=== PATIENT | female | born 1990 | race Caucasian/White ===

== ENCOUNTER 2020-06-24 12:20 | Outpatient (REF) | payer OTHER, SELFPAY | END 2020-06-24 12:21 | disposition home or self-care (01) | LOC: HO.LAB 12:20 | PROVIDERS: Visit Provider Internal Medicine | DX: Z20.828 Contact with and (suspected) exposure to other viral communicable diseases (principal) | CPT/HCPCS: U0003 ==

== ENCOUNTER 2021-04-13 09:00 | Outpatient (RCR) | payer OTHER, SELFPAY | END 2021-04-13 11:19 | disposition home or self-care (01) | LOC: HO.PT 09:00 | PROVIDERS: Visit Provider Orthopaedic Surgery | DX: M25.311 Other instability, right shoulder (principal); M25.312 Other instability, left shoulder | CPT/HCPCS: 97014; 97110; 97112; 97140; 97161 ==

== ENCOUNTER 2021-05-29 08:20 | Emergency (ER) | payer OTHER, SELFPAY ==
--- NOTE | 2021-05-29 | ECG_ITS ---
Test Reason : CHEST PAIN Blood Pressure : / mmHG Vent. Rate : 081 BPM Atrial Rate : 081 BPM P-R Int : 114 ms QRS Dur : 088 ms QT Int : 360 ms P-R-T Axes : 070 059 049 degrees QTc Int : 418 ms Normal sinus rhythm Normal ECG No previous ECGs available Referred By: Generic ED Physician Electronically Signed By:GRAEME MCCAULEY
--- NOTE | ~2021-05-29 | XR_ITS ---
EXAMINATION: XR CHEST CLINICAL INFORMATION: Chest pain COMPARISON: None TECHNIQUE: 2 views of the chest were obtained. FINDINGS: The lungs are clear. There is no pneumothorax, pleural reaction, airspace consolidation, groundglass opacity. The costophrenic sulci are well-defined there is size. The vascularity is normal. No acute bony abnormality. There are orthopedic screws overlying right shoulder. XR/XR chest 2V IMPRESSION: Lungs clear.
[2021-05-29 08:43] VITALS: BP 95/63; PULSE 86; RESP 19; TEMP 36.7; O2SAT 98; BMI 20.7
--- NOTE | 2021-05-29 09:08 | ED.CHESTPAIN ---
HPI - Chest Pain General Chief Complaint: Chest Pain Stated Complaint: chest pain, dizziness Time Seen by Provider: 05/29/21 09:01 Source: patient Mode of arrival: ambulatory Limitations: no limitations History of Present Illness MD complaint: chest pain Onset (ago): hour(s) (2) Timing of current episode: constant Prior episodes: No Onset: during rest Pain location: substernal Pain radiation: none Severity: mild Quality: sharp Relieving factors: nothing Exacerbating factors: palpation Context: other (first Pfizer shot on Saturday) Associated symptoms: dyspnea Treatment prior to arrival: none Related Data Previous Rx's Medication Instructions Recorded cyclobenzaprine 10 mg tablet 10 mg PO TID PRN #14 tab 05/29/21 ibuprofen 600 mg tablet 600 mg PO Q6H PRN #30 tab 05/29/21 Allergies Allergy/AdvReac Type Severity Reaction Status Date / Time Unable to Assess Allergy Verified 05/29/21 09:04 Review of Systems Review of Systems: Constitutional : No Fever, No Chills ENT/Mouth : No sore throat, No Rhinorrhea, No Swallowing Difficulty Eyes: No Eye Pain, No Swelling, No Redness Cardiovascular : pos Chest Pain, positive SOB, No Orthopnea, no Edema Respiratory : No Cough, No Sputum, No Wheezing, positive dyspnea Gastrointestinal : No Nausea, No Vomiting, No Diarrhea, No abdominal Pain, No Hematochezia, No Melena Genitourinary : No Dysuria, No Urinary Frequency, No Hematuria Musculoskeletal : No joint pain, No Myalgias Skin : No Skin Lesions, No rash Neuro : No Weakness, No Numbness, No Dizziness, No Headache Psych : No Anxiety/Panic, No Depression Heme/Lymph: No Bruising, No Lymphadenopathy Endocrine : No Polyuria, No Polydipsia All other systems reviewed and are negative [facility] Past Medical History Attestation statement: The following information was validated with the patient. Medical History Asthma Seizure Surgical History H/O shoulder surgery Social History Social History (Updated 05/29/21 @ 09:29 by Danielle Muñoz DO) Patient Tobacco Use Status: Never used Tobacco Use of substances other than those prescribed or required for medical reasons: No Advance Directives: No Patient : No Physical Exam Vital Signs: Vital Signs: Last Vital Signs Temp 98.9 F 05/29/21 11:13 Pulse 85 05/29/21 11:13 Resp 19 05/29/21 11:13 BP 103/65 05/29/21 11:13 Pulse Ox 99 05/29/21 11:13 Body Mass Index 20.7 Appearance: Alert. Oriented X3. No acute distress. Eyes: Pupils equal, round and reactive to light. ENT: Pharynx normal. Neck: Normal inspection. Neck supple. CVS: Normal heart rate and rhythm. Pulses normal. Chest: palpation to anterior chest wall reproduces pain Respiratory: No respiratory distress. Breath sounds normal. Abdomen: Soft and non-tender. Skin: Skin warm and dry. Normal skin color. Normal skin turgor. Extremities: No lower extremity edema. No calf ttp Neuro: Oriented X 3. No motor deficit. No sensory deficit. Course Course Course Narrative: tests negative stable for DC MDM - Chest Pain MDM Narrative Medical decision making narrative: 30 yo female with hx of epilepsy comes in with c/o chest wall pain since this AM she is one week out of her first Pfizer shot - she is not on OCPs, PERC negative, troponin x 2 for myocarditis could just be costochondritis Lab Data Result diagrams: 05/29/21 09:22 05/29/21 09:22 Labs: Lab Results 05/29/21 05/29/21 05/29/21 Range/Units 09:22 09:22 09:22 WBC 7.7 (4.8-10.8) X10*3/uL RBC 4.26 (4.20-5.50) X10*6/uL Hgb 13.6 (12.0-16.0) g/dl Hct 41.3 (37-47) % MCV 96.9 (80-98) fL MCH 31.9 (27.0-33.0) pg MCHC 32.9 (31.0-35.0) g/dl RDW 12.7 (11.0-16.0) % Plt Count 239 (160-400) X10*3/uL MPV 9.0 L (9.4-12.3) fL Immature Gran % (Auto) 0.3 (0.0-0.4) % Neut % (Auto) 52.4 (45-73) % Lymph % (Auto) 28.6 (20-40) % Elmore % (Auto) 7.1 (2-11) % Eos % (Auto) 10.8 H (0-4) % Baso % (Auto) 0.8 (0-2) % Lymph # (Auto) 2.2 (1.2-4.9) X10*3/uL Elmore # (Auto) 0.5 (0.1-1.2) X10*3/uL Eos # (Auto) 0.8 H (0.0-0.4) X10*3/uL Baso # (Auto) 0.1 (0.0-0.2) X10*3/uL Abs Immat Gran (auto) 0.02 (0.00-0.03) X10*3/uL Absolute Neuts (auto) 4.0 (2.0-8.3) X10*3/uL Absolute Nucleated RBC 0.000 (0.0-0.012) X10*3/uL Nucleated RBC % (auto) 0.0 (0.0-0.2) /100WBC Sodium 141 (135-145) mmol/L Potassium 5.0 (3.3-5.1) mmol/L Chloride 110 H (96-108) mmol/L Carbon Dioxide 28 (22-29) mmol/L Anion Gap 8 L (12-20) BUN 11 (9-16) mg/dL Creatinine 0.99 (0.5-1.4) mg/dL Estim Creat Clear Calc 73.0 Estimated GFR > 60 Random Glucose 94 (60-115) mg/dL Calcium 9.3 (8.4-10.2) mg/dL Troponin I High Sens < 3.5 (<3.5-17.0) ng/L COVID-19 (ZACK) (Negative) COVID-19 Clin Com 05/29/21 05/29/21 Range/Units 09:22 11:36 WBC (4.8-10.8) X10*3/uL RBC (4.20-5.50) X10*6/uL Hgb (12.0-16.0) g/dl Hct (37-47) % MCV (80-98) fL MCH (27.0-33.0) pg MCHC (31.0-35.0) g/dl RDW (11.0-16.0) % Plt Count (160-400) X10*3/uL MPV (9.4-12.3) fL Immature Gran % (Auto) (0.0-0.4) % Neut % (Auto) (45-73) % Lymph % (Auto) (20-40) % Elmore % (Auto) (2-11) % Eos % (Auto) (0-4) % Baso % (Auto) (0-2) % Lymph # (Auto) (1.2-4.9) X10*3/uL Elmore # (Auto) (0.1-1.2) X10*3/uL Eos # (Auto) (0.0-0.4) X10*3/uL Baso # (Auto) (0.0-0.2) X10*3/uL Abs Immat Gran (auto) (0.00-0.03) X10*3/uL Absolute Neuts (auto) (2.0-8.3) X10*3/uL Absolute Nucleated RBC (0.0-0.012) X10*3/uL Nucleated RBC % (auto) (0.0-0.2) /100WBC Sodium (135-145) mmol/L Potassium (3.3-5.1) mmol/L Chloride (96-108) mmol/L Carbon Dioxide (22-29) mmol/L Anion Gap (12-20) BUN (9-16) mg/dL Creatinine (0.5-1.4) mg/dL Estim Creat Clear Calc Estimated GFR Random Glucose (60-115) mg/dL Calcium (8.4-10.2) mg/dL Troponin I High Sens < 3.5 (<3.5-17.0) ng/L COVID-19 (ZACK) Negative (Negative) COVID-19 Clin Com See Note ECG Data ECG #1: Attestation: I personally reviewed and interpreted this ECG as follows: ECG interpretation date: 05/29/21 ECG interpretation time: 09:09 Interpretation: Rate: 81 Rhythm: NSR Irving: normal Normal P waves. Normal FÁTIMA. Normal QRS complex. ST T wave : no BILL, normal qTC: normal prior studies: no acute ischemia The study has been interpreted contemporaneously by me. . Discharge Plan Discharge Clinical Impression: Acute costochondritis Patient Disposition: Home, Self-Care Instructions: Costochondritis (ED) Additional Instructions: return to ED for any worsening symptoms or concerns Prescriptions: New cyclobenzaprine 10 mg tablet 10 mg PO TID PRN (Reason: muscle spasm) Qty: 14 RF: 0 ibuprofen 600 mg tablet 600 mg PO Q6H PRN (Reason: pain) Qty: 30 RF: 0 Referrals: Zaida Drummond MD [Primary Care Provider] - 2 days (if not better) Stand Alone Forms: Work/School Release
[2021-05-29 09:27] LABS: MANUAL DIFF FLAG NO
[2021-05-29 09:30] LABS: Basophils Absolute Auto 0.1 X10*3/uL (0.0-0.2); Basophils Percent Auto 0.8 % (0-2); Eosinophils Absolute Auto 0.8 X10*3/uL (0.0-0.4); Eosinophils Percent Auto 10.8 % (0-4); Hematocrit 41.3 % (37-47); Hemoglobin 13.6 g/dl (12.0-16.0); Imm Gran Abs Auto 0.02 X10*3/uL (0.00-0.03); Imm Gran Pct Auto 0.3 % (0.0-0.4); Lymphocytes Absolute Auto 2.2 X10*3/uL (1.2-4.9); Lymphocytes Percent Auto 28.6 % (20-40); Mean Corpuscular HGB Conc 32.9 g/dl (31.0-35.0); Mean Corpuscular Hemoglobin 31.9 pg (27.0-33.0); Mean Corpuscular Volume 96.9 fL (80-98); Monocytes Absolute Auto 0.5 X10*3/uL (0.1-1.2); Monocytes Percent Auto 7.1 % (2-11); Neutrophils Percent Auto 52.4 % (45-73); Platelet Count 239 X10*3/uL (160-400); Red Blood Count 4.26 X10*6/uL (4.20-5.50); Red Cell Distribution Width 12.7 % (11.0-16.0); White Blood Count 7.7 X10*3/uL (4.8-10.8)
[2021-05-29 09:45] LABS: Anion Gap 8 (12-20); Blood Urea Nitrogen 11 mg/dL (9-16); COVID-19 Test Negative (Negative); Calcium 9.3 mg/dL (8.4-10.2); Carbon Dioxide 28 mmol/L (22-29); Chloride 110 mmol/L (96-108); Estimated Glomerular Filt Rate > 60; Glucose Random 94 mg/dL (60-115); Sodium 141 mmol/L (135-145)
[2021-05-29 09:48] VITALS: BP 96/58; PULSE 70; RESP 18; O2SAT 100
[2021-05-29 09:51] LABS: Troponin-I High Sensitivity < 3.5 ng/L (<3.5-17.0)
--- NOTE | 2021-05-29 09:51 | PC.NURSE ---
pt alert and oriented, skin pwd, respirations even and unlabored. pt reports midsternal chest pain 0730 today, feel sharp, states felt like her heart was racing. denies sob/nausea. ns on the monitor.
[2021-05-29 11:13] VITALS: BP 103/65; PULSE 85; RESP 19; TEMP 37.2; O2SAT 99
[2021-05-29 12:04] LABS: Troponin-I High Sensitivity < 3.5 ng/L (<3.5-17.0)
== END 2021-05-29 12:48 | disposition home or self-care (01) ==
PROVIDERS: Emergency Provider Emergency Medicine; PCP Family Medicine
DX: M94.0 Chondrocostal junction syndrome [Tietze] (principal); R07.9 Chest pain, unspecified; R42 Dizziness and giddiness; Z20.822 Contact with and (suspected) exposure to COVID-19; Z79.899 Other long term (current) drug therapy
CPT/HCPCS: 36415; 71046; 80048; 84484; 85025; 87635; 93005; 99283; 99284

== ENCOUNTER 2022-07-16 13:50 | Emergency (ER) | payer OTHER, SELFPAY ==
--- NOTE | 2022-07-16 13:56 | ED_ITS ---
HPI - Allergic Reaction General Chief complaint: Allergic Reaction Stated complaint: allergic reaction throat closing rapid heart beat Time Seen by Provider: 07/16/22 13:54 Source: patient Mode of arrival: ambulatory Limitations: no limitations History of Present Illness HPI narrative: 31 year old female states she was eating some Related Data Previous Rx's Medication Instructions Recorded cyclobenzaprine 10 mg tablet 10 mg PO TID PRN muscle spasm #14 05/29/21 tabs ibuprofen 600 mg tablet 600 mg PO Q6H PRN pain #30 tabs 05/29/21 epinephrine 0.3 mg/0.3 mL 0.3 mg (0.3 mL) IM Q10M PRN 07/16/22 injection syringe anaphylaxis #2 ea prednisone 20 mg tablet 60 mg PO DAILY Asthma 5 days #15 07/16/22 tabs Allergies Allergy/AdvReac Type Severity Reaction Status Date / Time Unable to Assess Allergy Verified 05/29/21 09:04 Review of Systems Review of Systems: Review of systems: General: Patient denies any fever chills recent illness or falls Musculoskeletal: Denies back pain or body aches or other injuries HEENT: denies headache, runny nose, ear pain Respiratory: denies shortness of breath, cough Cardiovascular: no chest pain or palpitations : denies dysuria, frequency Abdomen: no nausea vomiting denies abdominal pain Extremities: no swelling, no pain Skin: no diaphoresis Yes all other systems are reviewed and are negative [facility] Past Medical History Attestation statement: The following information was validated with the patient. Medical History Asthma Seizure Surgical History H/O shoulder surgery Social History Social History (Updated 05/29/21 @ 09:29 by Ctaarina Muñoz DO) Patient Tobacco Use Status: Never used Tobacco Advance Directives: Yes Advance Directives Information Provided: Yes Advance Directives on File: No Physical Exam ED Vital Signs: Vital Signs - 24 hr 07/16/22 14:04 07/16/22 14:33 Temperature 98.6 F Pulse Rate 84 71 Respiratory Rate 18 16 Blood Pressure 118/81 101/65 Pulse Oximetry 100 100 Oxygen Delivery Method Room Air Room Air BMI result Body Mass Index 22.4 Const General: cooperative and healthy appearing HENMT Head: Yes normal to inspection Face and sinus: Yes normal facial exam Mouth: Normal oral and palatal mucosa present Throat: Yes posterior oropharynx normal and Yes other (uvula slightly enlarged) Neck Neck: Yes normal visual inspection Chest Chest palpation & inspection: normal inspection of the chest Resp Effort & Inspection: normal respiratory effort Auscultation: clear to auscultation bilaterally Cardio Jugular venous distension: no JVD Rate: regular rate Rhythm: regular rhythm Skin General skin exam: no rashes or lesions noted Extrem General: Yes normal to inspection, Yes full ROM and Yes capillary refill normal Course Reevaluation(s) Reevaluation #1: Symptoms started to worsen per the patient prior to being medicated. She was remedicated and sensation improved. Uvula has gotten smaller since first evaluation. Time: 15:05 Medications Administered Discontinued Medications Generic Name Dose Route Start Last Admin Trade Name Fermin PRN Reason Stop Dose Admin Diphenhydramine HCl 50 mg 07/16/22 13:55 07/16/22 14:55 Diphenhydramine Hcl 25 Mg Capsule PO 07/16/22 13:56 50 mg ONCE ONE Administration Epinephrine 0.3 mg 07/16/22 13:55 07/16/22 14:57 Epinephrine 1 Mg/Ml Vial IM 07/16/22 13:56 0.3 mg STAT STA Administration Famotidine 20 mg 07/16/22 13:55 07/16/22 14:55 Famotidine 20 Mg Tablet PO 07/16/22 13:56 20 mg ONCE ONE Administration Prednisone 60 mg 07/16/22 13:55 07/16/22 14:55 Prednisone 20 Mg Tablet PO 07/16/22 13:56 60 mg ONCE ONE Administration MDM - Allergic Reaction MDM Narrative Medical decision making narrative: Concern for anaphylaxis with angioedema. She has no obvious symptoms no throat closing enlarged tongue abdominal pain or rash. Her uvula is enlarged concerning for angioedema. I will give epinephrine, benadryl pepcid and watch for the next hour. 1530 Patient feeling much better after medications I will send home with epinephrine and prednisone and have her follow up with her PCP. I did educate her on appropriate use of epi pen as well. Differential Diagnosis Differential diagnosis: Likely anaphylaxis, allergic reaction, angioedema and contact dermatitis Medical Records Attestation: I reviewed the patient's medical records. Critical Care Time Critical Care Time Critical Care Time: Yes Total Critical Care Time: 35 Attestation: Called to see patient for allergic reaction treated for angioedema and swelling of the throat. Given treatment multiple evaluations with resolution of symptoms. Discharge Plan Discharge Clinical Impression: Allergic reaction Patient Disposition: Home, Self-Care Instructions: General Allergic Reaction (ED) Additional Instructions: Please call to follow up with your doctor. IF you are feeling worse please return to the ED. Prescriptions: New epinephrine 0.3 mg/0.3 mL syringe 0.3 mg IM Q10M PRN (Reason: anaphylaxis) Qty: 2 0RF Rx Instructions: for 2 doses prednisone 20 mg tablet 60 mg PO DAILY 5 Days Qty: 15 0RF No Action cyclobenzaprine 10 mg tablet 10 mg PO TID PRN (Reason: muscle spasm) Qty: 14 0RF ibuprofen 600 mg tablet 600 mg PO Q6H PRN (Reason: pain) Qty: 30 0RF
[2022-07-16 14:04] VITALS: BP 118/81; PULSE 84; RESP 18; TEMP 37; O2SAT 100; BMI 22.4
[2022-07-16 14:33] VITALS: BP 101/65; PULSE 71; RESP 16; O2SAT 100
[2022-07-16] MEDS: predniSONE 20 MG TABLET 60 MG PO (14:55)
[2022-07-16] MEDS: Famotidine 20 MG TABLET PO (14:55)
[2022-07-16] MEDS: diphenhydrAMINE HCL 25 MG CAPSULE 50 MG PO (14:55)
[2022-07-16] MEDS: EPINEPHrine 1 MG/ML VIAL 0.3 MG IM (14:57)
== END 2022-07-16 16:28 | disposition home or self-care (01) ==
PROVIDERS: Emergency Provider Student in an Organized Health Care Education/Training Program; PCP Family Medicine
DX: T78.40XA Allergy, unspecified, initial encounter (principal); T78.3XXA Angioneurotic edema, initial encounter; X58.XXXA Exposure to other specified factors, initial encounter
CPT/HCPCS: 96372; 99283; 99284; J0171

== ENCOUNTER 2022-07-25 16:42 | Emergency (ER) | payer OTHER, SELFPAY ==
[2022-07-25 16:47] VITALS: BP 120/76; PULSE 96; RESP 16; TEMP 36.6; O2SAT 99; BMI 20.7
--- NOTE | 2022-07-25 16:55 | ED_ITS ---
HPI - Chest Pain General Chief Complaint: Chest Pain Stated Complaint: Chest Pain Related Data Previous Rx's Medication Instructions Recorded cyclobenzaprine 10 mg tablet 10 mg PO TID PRN muscle spasm #14 05/29/21 tabs ibuprofen 600 mg tablet 600 mg PO Q6H PRN pain #30 tabs 05/29/21 epinephrine 0.3 mg/0.3 mL 0.3 mg (0.3 mL) IM Q10M PRN 07/16/22 injection syringe anaphylaxis #2 ea prednisone 20 mg tablet 60 mg PO DAILY Asthma 5 days #15 07/16/22 tabs Allergies Allergy/AdvReac Type Severity Reaction Status Date / Time Unable to Assess Allergy Verified 05/29/21 09:04 [facility] Past Medical History Medical History Asthma Seizure Surgical History H/O shoulder surgery Social History Social History (Updated 05/29/21 @ 09:29 by Catarina Muñoz DO) Patient Tobacco Use Status: Never used Tobacco Advance Directives: No Advance Directives Information Provided: No Physical Exam Vital Signs: Vital Signs: Last Vital Signs Temp 97.9 F 07/25/22 16:47 Pulse 96 07/25/22 16:47 Resp 16 07/25/22 16:47 BP 120/76 07/25/22 16:47 Pulse Ox 99 07/25/22 16:47 O2 Del Method 07/25/22 16:47 BMI result Body Mass Index 20.7 Course Course Course Narrative: RME: 31-year-old woman with history of asthma, seizures and migraines who presents emergency department for evaluation of sudden onset of chest pain at 16:10 hours while she was driving. Patient points to her left chest, the pain is a sharp pain which is worse with movement respiration, she states her heart rate was also elevated 130 she felt short of breath. Is a 1st episode of this type of pain. She is not on control pills but does have an IUD. Vital signs were normal. Patient is awake and alert in no distress. HEENT exam: Head normal cephalic atraumatic, pupils equal round reactive light, sclera contact however normal, mouth moist membranes. Neck: Supple, no adenopathy. Lungs: Clear to auscultation breath sounds symmetric bilaterally. Heart: Regular rate rhythm, normal S1-S2. Abdomen: Soft, nontender nondistended. Back: No tenderness, no CVA tenderness. Extremities: Normal. Neurologic exam nonfocal. I ordered a CBC, CMP, PT/INR, PTT, troponin, urinalysis, urine test, EKG. Discharge Plan Discharge Clinical Impression: Chest pain Patient Disposition: Elopement Prescriptions: No Action cyclobenzaprine 10 mg tablet 10 mg PO TID PRN (Reason: muscle spasm) Qty: 14 0RF ibuprofen 600 mg tablet 600 mg PO Q6H PRN (Reason: pain) Qty: 30 0RF epinephrine 0.3 mg/0.3 mL syringe 0.3 mg IM Q10M PRN (Reason: anaphylaxis) Qty: 2 0RF Rx Instructions: for 2 doses prednisone 20 mg tablet 60 mg PO DAILY 5 Days Qty: 15 0RF Discharge Date/Time: 07/25/22 21:13
--- NOTE | 2022-07-25 18:20 | PC.NURSE ---
Called for EKG and labs @[id number], no response
--- NOTE | 2022-07-25 20:44 | PC.NURSE ---
called for triage, not in waiting room.
--- NOTE | 2022-07-25 21:12 | PC.NURSE ---
Called for triage, not in waiting room.
== END 2022-07-25 21:13 | disposition left against medical advice (07) ==
PROVIDERS: Emergency Provider Emergency Medicine; PCP Family Medicine
DX: R07.9 Chest pain, unspecified (principal)
CPT/HCPCS: 99281